=== PATIENT | male | born 2000 | race American Indian/Alaskan Native ===

== ENCOUNTER 2018-06-11 11:35 | Emergency (ER) | payer MEDICAID ==
[2018-06-11 11:42] VITALS: BP 118/66
[2018-06-11] MEDS ORDERED: MOTRIN PO ONE (12:22)
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
--- NOTE | 2018-06-11 14:07 | XRay Report ---
FINAL REPORT PROCEDURE: XR SHOULDER 2+V LT TECHNIQUE: Left shoulder, three views HISTORY: left shoulder pain due to injury COMPARISON: No prior studies are available for comparison. FINDINGS: No acute fracture or dislocation is seen. Joint spaces are preserved. No focal osseous lesions are seen. IMPRESSION: No acute osseous abnormality is identified
== END 2018-06-11 15:15 | disposition home or self-care (01) ==
LOC: ED 11:35
DX: M25.512 Pain in left shoulder (principal); F17.200 Nicotine dependence, unspecified, uncomplicated; F12.10 Cannabis abuse, uncomplicated
CPT/HCPCS: 99283